=== PATIENT | female | born 1955 | race Caucasian/White ===

== ENCOUNTER 2018-10-14 09:43 | Inpatient (IN) | payer OTHER ==
[2018-10-14 10:26] LABS: HEMATOCRIT 36.2 % (36.0-47.0); MEAN CORPUSCULAR HEMOGLOBIN 32.7 pg (27.0-33.0); MEAN CORPUSCULAR HGB CONC 33.1 g/dl (32.0-36.5); MEAN CORPUSCULAR VOLUME 98.6 fl (80.0-96.0); PLATELET COUNT, AUTOMATED 303 10^3/uL (150-450); RED BLOOD COUNT 3.67 10^6/uL (4.00-5.40); RED CELL DISTRIBUTION WIDTH 13.4 % (11.5-14.5); WHITE BLOOD COUNT 9.3 10^3/uL (4.0-10.0)
[2018-10-14 10:33] LABS: INR 0.96; PROTHROMBIN TIME 12.8 SECONDS (12.1-14.4)
[2018-10-14] MEDS ORDERED: LIDOCAINE 2% INJ 100 MG/5 ML SDV (FOR ANES.) As Ordered (10:39)
[2018-10-14] MEDS ORDERED: PROPOFOL 200 MG/20 ML VIAL As Ordered ×2 (10:39)
[2018-10-14] MEDS: LR 1,000 ML IV ×3 (10:48→20:16)
[2018-10-14 10:59] LABS: ALBUMIN 3.5 GM/DL (3.2-5.2); ALBUMIN/GLOBULIN RATIO 0.95 (1.00-1.93); ALKALINE PHOSPHATASE 99 U/L (45-117); ALT/SGPT 41 U/L (12-78); ANION GAP 8 MEQ/L (8-16); AST/SGOT 34 U/L (7-37); BILIRUBIN,TOTAL 0.5 MG/DL (0.2-1.0); BLOOD UREA NITROGEN 38 MG/DL (7-18); CALCIUM LEVEL 9.2 MG/DL (8.8-10.2); CARBON DIOXIDE LEVEL 26 MEQ/L (21-32); CHLORIDE LEVEL 106 MEQ/L (98-107); CREATININE FOR GFR 1.43 MG/DL (0.55-1.30); GLOMERULAR FILTRATION RATE 39.7 (>45); GLUCOSE, FASTING 105 MG/DL (70-100); POTASSIUM SERUM 3.4 MEQ/L (3.5-5.1); SODIUM LEVEL 140 MEQ/L (136-145); TOTAL PROTEIN 7.2 GM/DL (6.4-8.2)
[2018-10-14] MEDS ORDERED: MIDAZOLAM INJ 2 MG/2 ML VIAL (J2250) As Ordered (11:02)
[2018-10-14] MEDS ORDERED: fentaNYL 100 MCG/2 ML INJECTION (J3010) As Ordered (11:02)
[2018-10-14] MEDS: ceFAZolin 1GM INJ (J0690 PER 500MG) As Ordered (12:26)
[2018-10-14] MEDS: EPINEPHrine INJ 1 MG/ML 1ML AMP As Ordered (12:38)
[2018-10-14] MEDS: TRANEXAMIC ACID 100 MG/ML 10ML VIAL As Ordered (12:38)
[2018-10-14] MEDS ORDERED: ePHEDrine SULFATE 25 MG/5 ML(5MG/ML) SYRINGE As Ordered (12:40)
[2018-10-14] MEDS ORDERED: BUPIVACAINE/DEXTROSE 0.75% 2 ML AMP As Ordered (12:40)
[2018-10-14] MEDS: MORPHINE 1MG/ML IN 0.9% NACL 100ML IV BAG IV (13:45)
[2018-10-14] MEDS ORDERED: MORPHINE 1MG/ML IN 0.9% NACL 100ML IV BAG As Ordered (13:47)
[2018-10-14] MEDS ORDERED: ONDANSETRON 4MG/2ML VIAL (J2405) IV ×3 (14:00→14:15)
[2018-10-14] MEDS ORDERED: MEPERIDINE INJ 25 MG/ML VIAL (J2175) IV (14:00)
[2018-10-14] MEDS ORDERED: FLEET ENEMA PR (14:00)
[2018-10-14] MEDS ORDERED: METOCLOPRAMIDE INJ 10MG/2ML VIAL (J2765) IV (14:00)
[2018-10-14] MEDS ORDERED: fentaNYL 100 MCG/2 ML INJECTION (J3010) IV (14:00)
[2018-10-14] MEDS ORDERED: PERCOCET 5MG/325MG TAB PO (14:00)
[2018-10-14] MEDS ORDERED: NALOXONE INJ 0.4 MG/1 ML VIAL (J2310) IV (14:15)
[2018-10-14] MEDS ORDERED: diphenhydrAMINE INJ 50MG/ML VIAL (J1200) IV (14:15)
[2018-10-14] MEDS ORDERED: EPIDURAL/PCA KEYS XX (14:15)
[2018-10-14] MEDS: NALBUPHINE HCL 10 MG/ML AMP (J2300) IV (14:24)
[2018-10-14] MEDS: NICOTINE 21MG/24HR 1 EA TRANSDERMAL TD (20:16)
[2018-10-15] MEDS: LR 1,000 ML IV (00:49)
[2018-10-15] MEDS: MORPHINE 1MG/ML IN 0.9% NACL 100ML IV BAG IV (02:58)
[2018-10-15] MEDS ORDERED: ONDANSETRON 4 MG TAB (S0181) PO (06:15)
[2018-10-15] MEDS ORDERED: PERCOCET 5MG/325MG TAB PO (06:15)
[2018-10-15 06:18] LABS: HEMATOCRIT 31.2 % (36.0-47.0); MEAN CORPUSCULAR HGB CONC 31.4 g/dl (32.0-36.5); PLATELET COUNT, AUTOMATED 261 10^3/uL (150-450); RED BLOOD COUNT 3.06 10^6/uL (4.00-5.40); RED CELL DISTRIBUTION WIDTH 13.6 % (11.5-14.5); WHITE BLOOD COUNT 11.6 10^3/uL (4.0-10.0)
[2018-10-15 06:28] LABS: HEMOGLOBIN 9.8 g/dl (12.0-15.5)
[2018-10-15 06:38] LABS: INR 0.97
[2018-10-15] MEDS: MIRALAX *UNIT DOSE* 17GM PACKET PO (08:31)
[2018-10-15] MEDS: MOM 30ML SUSPENSION UDC PO (08:31)
[2018-10-15] MEDS: PERCOCET 5MG/325MG TAB PO ×3 (08:32→21:12)
[2018-10-15] MEDS: VENLAFAXINE **XR** 75MG CAPSULE PO (08:33)
[2018-10-15] MEDS: SENOKOT S TAB PO ×2 (08:33→21:11)
[2018-10-15] MEDS: POTASSIUM CHLORIDE 10 MEQ SR TABLET PO (08:33)
[2018-10-15] MEDS: SIMVASTATIN 20 MG TAB PO (08:33)
[2018-10-15] MEDS: ATENOLOL 12.5MG PER 1/2 TABLET PO (08:36)
[2018-10-15] MEDS: RIVAROXABAN 10 MG TAB (XARELTO) PO (17:08)
[2018-10-15] MEDS: diphenhydrAMINE 25 MG CAP PO ×2 (18:37→23:19)
[2018-10-15] MEDS: NICOTINE 21MG/24HR 1 EA TRANSDERMAL TD (21:14)
[2018-10-16] MEDS: ACETAMINOPHEN TAB 650MG DOSE (2X325MG) PO (01:23)
[2018-10-16] MEDS ORDERED: traMADol 50 MG TAB PO (06:00)
[2018-10-16] MEDS: ACETAMINOPHEN 500 MG TAB PO (06:13)
[2018-10-16] MEDS: traMADol 50 MG TAB PO ×2 (06:14→10:30)
[2018-10-16 06:22] LABS: HEMATOCRIT 27.7 % (36.0-47.0); HEMOGLOBIN 8.8 g/dl (12.0-15.5); MEAN CORPUSCULAR HEMOGLOBIN 32.4 pg (27.0-33.0); MEAN CORPUSCULAR HGB CONC 31.8 g/dl (32.0-36.5); MEAN CORPUSCULAR VOLUME 101.8 fl (80.0-96.0); PLATELET COUNT, AUTOMATED 238 10^3/uL (150-450); RED BLOOD COUNT 2.72 10^6/uL (4.00-5.40); RED CELL DISTRIBUTION WIDTH 13.3 % (11.5-14.5); WHITE BLOOD COUNT 11.6 10^3/uL (4.0-10.0)
[2018-10-16 08:12] LABS: ANION GAP 5 MEQ/L (8-16); BLOOD UREA NITROGEN 23 MG/DL (7-18); CALCIUM LEVEL 8.5 MG/DL (8.8-10.2); CARBON DIOXIDE LEVEL 28 MEQ/L (21-32); CHLORIDE LEVEL 105 MEQ/L (98-107); CREATININE FOR GFR 1.18 MG/DL (0.55-1.30); GLOMERULAR FILTRATION RATE 49.6 (>45); GLUCOSE, FASTING 104 MG/DL (70-100); MAGNESIUM LEVEL 1.7 MG/DL (1.8-2.4); POTASSIUM SERUM 4.2 MEQ/L (3.5-5.1); SODIUM LEVEL 138 MEQ/L (136-145)
[2018-10-16] MEDS: SIMVASTATIN 20 MG TAB PO (09:18)
[2018-10-16] MEDS: VENLAFAXINE **XR** 75MG CAPSULE PO (09:18)
[2018-10-16] MEDS: ATENOLOL 12.5MG PER 1/2 TABLET PO ×2 (09:20→09:22)
[2018-10-16] MEDS: SENOKOT S TAB PO (09:22)
[2018-10-16] MEDS: MIRALAX *UNIT DOSE* 17GM PACKET PO (09:22)
[2018-10-16] MEDS: MOM 30ML SUSPENSION UDC PO (09:23)
== END 2018-10-16 10:35 | disposition home or self-care (01) | DRG 301 ==
LOC: M OR 09:43 → M MS5PR 14:50
PROC: 0SR904A Replacement of Right Hip Joint with Ceramic on Polyethylene Synthetic Substitute, Uncemented, Open Approach (ICD-10-PCS; principal; 2018-10-14 11:45)
DX: M16.11 Unilateral primary osteoarthritis, right hip (principal); I10 Essential (primary) hypertension; Z79.899 Other long term (current) drug therapy; E78.5 Hyperlipidemia, unspecified; G47.00 Insomnia, unspecified; F41.9 Anxiety disorder, unspecified; F32.9 Major depressive disorder, single episode, unspecified; F10.10 Alcohol abuse, uncomplicated; F17.200 Nicotine dependence, unspecified, uncomplicated

== ENCOUNTER 2023-02-13 15:38 | Inpatient (IN) | payer OTHER ==
[2023-02-13] VITALS (8 sets, daily range): BP systolic 135–169; BP diastolic 69–93
[~2023-02-13] VITALS: Ht 154.9 cm; Wt 56.1 kg
[~2023-02-13 15:38] MED LIST: ALEV220T26 PO; ATEN25TA PO; IBUPOTC PO; SIMV20TA22 PO; TRAM50TA2 PO; VENL150C43 PO; XARE10TA PO
[2023-02-13] MEDS ORDERED: FOLIC ACID 1 MG in NS 50 ML IV SCH (17:50)
[2023-02-13] MEDS ORDERED: LR 1,000 ML IV SCH (17:50)
[2023-02-13] MEDS ORDERED: THIAMINE 200MG 2ML VIAL IV ONE (18:00)
[2023-02-13] MEDS ORDERED: LORazepam 2 MG TAB PO PRN (18:05)
[2023-02-13] MEDS ORDERED: LORazepam 2 MG/ML 1ML VIAL IV PRN (18:05)
[2023-02-13 18:08] LABS: VENOUS BASE EXCESS -4.7 (-2.0-2.0); VENOUS HCO3 19.2 MEQ/L (23.0-27.0); VENOUS O2 SATURATION 82.7 % (60.0-80.0); VENOUS PARTIAL PRESSURE CO2 31.2 mmHg (38.0-50.0); VENOUS PARTIAL PRESSURE O2 45.9 mmHg (30.0-50.0); VENOUS PH 7.406 UNITS (7.330-7.430); VENOUS STANDARD HCO3 20.3 MEQ/L; VENOUS TOTAL CO2 20.1 MEQ/L (24.0-28.0)
[2023-02-13 18:45] LABS: BILIRUBIN,TOTAL 0.7 MG/DL (0.3-1.2); CALCIUM LEVEL 8.4 MG/DL (8.3-10.6); CREATININE FOR GFR 1.48 MG/DL (0.55-1.30); GLOMERULAR FILTRATION RATE 37.7 (>45); POTASSIUM SERUM 3.6 MMOL/L (3.5-5.1); TOTAL PROTEIN 6.3 G/DL (5.7-8.2)
[2023-02-13] MEDS ORDERED: HOME MED LIST COMPLETE! XX SCH (18:45)
[2023-02-13] MEDS ORDERED: MULTIVITAMIN ADULT IV SCH (19:00)
[2023-02-13] MEDS ORDERED: FOLIC ACID IV SCH (19:00)
[2023-02-13] MEDS ORDERED: THIAMINE IV SCH (19:00)
[2023-02-13] MEDS ORDERED: [UNRECOGNIZED DRUG - OTHER] IV SCH (19:00)
[2023-02-13] MEDS: LORazepam 2 MG/ML 1ML VIAL IV PRN ×2 (20:18→23:38)
[2023-02-13] MEDS: HALOPERIDOL 5MG/ML 1ML VIAL IV PRN (20:18)
[2023-02-13] MEDS ORDERED: LORazepam 2 MG/ML 1ML VIAL IV STA ×2 (20:38→21:46)
[2023-02-13] MEDS ORDERED: OLANZapine INTRAMUSCULAR 10MG VIAL IM ONE (21:50)
[2023-02-13] MEDS: dexmedeTOMidine 200 MCG in IV 1 EA IV SCH (22:32)
[2023-02-14] VITALS (19 sets, daily range): BP systolic 94–159; BP diastolic 53–90
[2023-02-14] MEDS: dexmedeTOMidine 200 MCG in IV 1 EA IV SCH ×2 (00:57→04:47)
[2023-02-14 05:43] LABS: HEMATOCRIT 28.4 % (36.0-47.0); HEMOGLOBIN 8.9 g/dl (12.0-15.5); MEAN CORPUSCULAR HEMOGLOBIN 26.1 pg (27.0-33.0); MEAN CORPUSCULAR HGB CONC 31.3 g/dl (32.0-36.5); MEAN CORPUSCULAR VOLUME 83.3 fl (80.0-96.0); PLATELET COUNT, AUTOMATED 162 10^3/uL (150-450); RED BLOOD COUNT 3.41 10^6/uL (4.00-5.40); WHITE BLOOD COUNT 4.9 10^3/uL (4.0-10.0)
[2023-02-14] MEDS: HEPARIN SOD (PORCINE) 5000UNITS/ML 1ML VIAL/SYRINGE SC SCH ×3 (06:03→21:04)
[2023-02-14 06:25] LABS: ALBUMIN 2.6 G/DL (3.2-5.2); BILIRUBIN,TOTAL 0.7 MG/DL (0.3-1.2); CALCIUM LEVEL 8.3 MG/DL (8.3-10.6); CREATININE FOR GFR 1.33 MG/DL (0.55-1.30); GLOMERULAR FILTRATION RATE 42.6 (>45); POTASSIUM SERUM 3.2 MMOL/L (3.5-5.1); TOTAL PROTEIN 5.7 G/DL (5.7-8.2)
[2023-02-14] MEDS: KCL 10MEQ/100ML SWI (KRUN) 10 MEQ in IV 1 EA IV SCH ×3 (06:41→10:48)
[2023-02-14 06:59] LABS: MAGNESIUM LEVEL 2.3 MG/DL (1.8-2.4)
[2023-02-14] MEDS ORDERED: IPRATROPIUM 0.5MG/ALBUTEROL 2.5MG INH SOL UD 3ML (DUONEB) NEB PRN (08:25)
[2023-02-14] MEDS: MULTIVITAMINS/MINERALS THERAP 1 TAB PO SCH (09:00)
[2023-02-14] MEDS: THIAMINE 100 MG TAB PO SCH ×2 (09:00→20:02)
[2023-02-14] MEDS ORDERED: D5W/0.9% SODIUM CHLORIDE 1,000 ML IV SCH (09:00)
[2023-02-14] MEDS: FOLIC ACID 1MG TAB PO SCH (09:00)
[2023-02-14] MEDS ORDERED: methylPREDNISolone 40MG 1ML VIAL IV ONE (09:00)
[2023-02-14] MEDS: OXAZEPAM 10MG CAP PO SCH ×2 (09:00→19:46)
[2023-02-14] MEDS ORDERED: MULTIVITAMIN -ADULT INJECTION 10 ML in NS 500 ML IV SCH (09:00)
[2023-02-14] MEDS: HALOPERIDOL 5MG/ML 1ML VIAL IV PRN ×2 (11:31→19:46)
[2023-02-15] VITALS (7 sets, daily range): BP systolic 95–150; BP diastolic 54–87
[2023-02-15] MEDS: HEPARIN SOD (PORCINE) 5000UNITS/ML 1ML VIAL/SYRINGE SC SCH ×3 (05:22→21:44)
[2023-02-15 05:41] LABS: HEMOGLOBIN 9.6 g/dl (12.0-15.5); MEAN CORPUSCULAR HEMOGLOBIN 26.1 pg (27.0-33.0); MEAN CORPUSCULAR VOLUME 81.5 fl (80.0-96.0); PLATELET COUNT, AUTOMATED 178 10^3/uL (150-450); RED BLOOD COUNT 3.68 10^6/uL (4.00-5.40)
[2023-02-15 06:19] LABS: BILIRUBIN,TOTAL 0.4 MG/DL (0.3-1.2); CALCIUM LEVEL 9.4 MG/DL (8.3-10.6); CREATININE FOR GFR 1.21 MG/DL (0.55-1.30); GLOMERULAR FILTRATION RATE 47.5 (>45); POTASSIUM SERUM 3.5 MMOL/L (3.5-5.1); TOTAL PROTEIN 6.5 G/DL (5.7-8.2)
[2023-02-15] MEDS: OXAZEPAM 10MG CAP PO SCH ×3 (08:05→21:40)
[2023-02-15] MEDS: FOLIC ACID 1MG TAB PO SCH (08:05)
[2023-02-15] MEDS: THIAMINE 100 MG TAB PO SCH ×2 (08:05→21:41)
[2023-02-15] MEDS: MULTIVITAMINS/MINERALS THERAP 1 TAB PO SCH (08:06)
[2023-02-15] MEDS ORDERED: POTASSIUM CHLORIDE 10MEQ SR TABLET PO ONE (09:15)
[2023-02-15] MEDS ORDERED: NS 1,000 ML IV ONE (09:55)
[2023-02-15] MEDS: NICOTINE 21MG/24HR 1 EA TRANSDERMAL TD PRN (21:40)
[2023-02-16] VITALS: BP 112/72
[2023-02-16 05:17] VITALS: BP 134/91
[2023-02-16] MEDS: HEPARIN SOD (PORCINE) 5000UNITS/ML 1ML VIAL/SYRINGE SC SCH ×3 (05:44→21:03)
[2023-02-16 06:09] LABS: HEMATOCRIT 29.7 % (36.0-47.0); HEMOGLOBIN 9.4 g/dl (12.0-15.5); MEAN CORPUSCULAR HGB CONC 31.6 g/dl (32.0-36.5); MEAN CORPUSCULAR VOLUME 82.3 fl (80.0-96.0); PLATELET COUNT, AUTOMATED 181 10^3/uL (150-450); RED BLOOD COUNT 3.61 10^6/uL (4.00-5.40); WHITE BLOOD COUNT 7.4 10^3/uL (4.0-10.0)
[2023-02-16 06:46] LABS: ALBUMIN 2.8 G/DL (3.2-5.2); BILIRUBIN,TOTAL 0.3 MG/DL (0.3-1.2); CALCIUM LEVEL 8.7 MG/DL (8.3-10.6); CREATININE FOR GFR 1.39 MG/DL (0.55-1.30); GLOMERULAR FILTRATION RATE 40.5 (>45); POTASSIUM SERUM 3.4 MMOL/L (3.5-5.1)
[2023-02-16] MEDS: FOLIC ACID 1MG TAB PO SCH (08:27)
[2023-02-16] MEDS: THIAMINE 100 MG TAB PO SCH ×2 (08:27→21:02)
[2023-02-16] MEDS: OXAZEPAM 10MG CAP PO SCH ×3 (08:27→21:02)
[2023-02-16] MEDS: NICOTINE 21MG/24HR 1 EA TRANSDERMAL TD PRN (08:28)
[2023-02-16] MEDS: MULTIVITAMINS/MINERALS THERAP 1 TAB PO SCH (08:28)
[2023-02-16 14:00] VITALS: BP 136/90
[2023-02-16 18:00] VITALS: BP 136/90
[2023-02-16 20:50] VITALS: BP 134/90
[2023-02-17 05:10] VITALS: BP 132/89
[2023-02-17] MEDS: HEPARIN SOD (PORCINE) 5000UNITS/ML 1ML VIAL/SYRINGE SC SCH (05:18)
[2023-02-17 06:18] LABS: HEMATOCRIT 31.8 % (36.0-47.0); HEMOGLOBIN 9.8 g/dl (12.0-15.5); MEAN CORPUSCULAR HEMOGLOBIN 26.1 pg (27.0-33.0); MEAN CORPUSCULAR HGB CONC 30.8 g/dl (32.0-36.5); MEAN CORPUSCULAR VOLUME 84.8 fl (80.0-96.0); PLATELET COUNT, AUTOMATED 183 10^3/uL (150-450); RED BLOOD COUNT 3.75 10^6/uL (4.00-5.40)
[2023-02-17 06:26] VITALS: BP 132/89
[2023-02-17] MEDS: NICOTINE 21MG/24HR 1 EA TRANSDERMAL TD PRN (06:41)
[2023-02-17 06:46] LABS: ALBUMIN 2.9 G/DL (3.2-5.2); BILIRUBIN,TOTAL 0.4 MG/DL (0.3-1.2); CALCIUM LEVEL 8.6 MG/DL (8.3-10.6); CREATININE FOR GFR 1.33 MG/DL (0.55-1.30); GLOMERULAR FILTRATION RATE 42.6 (>45); POTASSIUM SERUM 3.4 MMOL/L (3.5-5.1); TOTAL PROTEIN 5.9 G/DL (5.7-8.2)
[2023-02-17] MEDS: FOLIC ACID 1MG TAB PO SCH (08:02)
[2023-02-17] MEDS: OXAZEPAM 10MG CAP PO SCH (08:02)
[2023-02-17] MEDS: MULTIVITAMINS/MINERALS THERAP 1 TAB PO SCH (08:02)
[2023-02-17] MEDS ORDERED: FOLI1TAB11 PO ×2 (08:56→09:02)
[2023-02-17] MEDS ORDERED: VITMTA PO ×2 (08:56→09:02)
[2023-02-17] MEDS ORDERED: THIA100T7 PO ×2 (08:56→09:02)
[2023-02-17] MEDS ORDERED: OXAZ10CA3 PO ×2 (08:56→09:00)
[2023-02-17] MEDS ORDERED: POTASSIUM CHLORIDE 10MEQ SR TABLET PO ONE (10:00)
== END 2023-02-17 12:33 | disposition home or self-care (01) | DRG 775 ==
LOC: M ICU 17:18 → M MSPAV 02-15 12:44
PROVIDERS: ADMIT Internal Medicine Pulmonary Disease; ATTEND Internal Medicine Nephrology
DX: F10.239 Alcohol dependence with withdrawal, unspecified (principal); G92.9 Unspecified toxic encephalopathy; N17.9 Acute kidney failure, unspecified; J44.9 Chronic obstructive pulmonary disease, unspecified; E16.2 Hypoglycemia, unspecified; E78.5 Hyperlipidemia, unspecified; E87.6 Hypokalemia; F17.200 Nicotine dependence, unspecified, uncomplicated; F32.A Depression, unspecified; G47.33 Obstructive sleep apnea (adult) (pediatric); I10 Essential (primary) hypertension; R74.01 Elevation of levels of liver transaminase levels; Z96.641 Presence of right artificial hip joint; F41.9 Anxiety disorder, unspecified; Z79.899 Other long term (current) drug therapy

== ENCOUNTER 2024-09-11 20:39 | Emergency (ER) | payer MEDICARE, OTHER ==
[~2024-09-11 20:39] MED LIST changes: +FOLI1TAB11 PO; +OXAZ10CA3 PO; +THIA100T7 PO; +VITMTA PO
[2024-09-11] MEDS: THIAMINE 100 MG TAB PO SCH (21:00)
[2024-09-11 22:04] LABS: CARBOXYHEMOGLOBIN 3.9 % (0.0-1.5); VENOUS HCO3 23.1 MMOL/L (23.0-27.0); VENOUS O2 SATURATION 78.1 % (60.0-80.0); VENOUS PARTIAL PRESSURE CO2 50.5 mmHg (38.0-50.0); VENOUS PH 7.278 UNITS (7.330-7.430); VENOUS STANDARD HCO3 20.8 MMOL/L; VENOUS TOTAL CO2 24.6 MMOL/L (24.0-28.0)
[2024-09-11 22:08] LABS: HEMATOCRIT 32.2 % (36.0-47.0); HEMOGLOBIN 10.5 g/dl (12.0-15.5); MEAN CORPUSCULAR HEMOGLOBIN 28.3 pg (27.0-33.0); MEAN CORPUSCULAR HGB CONC 32.6 g/dl (32.0-36.5); MEAN CORPUSCULAR VOLUME 86.8 fl (80.0-96.0); PLATELET COUNT, AUTOMATED 364 10^3/uL (150-450); RED BLOOD COUNT 3.71 10^6/uL (4.00-5.40)
[2024-09-11 22:36] LABS: ALBUMIN 3.5 G/DL (3.2-5.2); ALKALINE PHOSPHATASE 110 U/L (35-104); ALT/SGPT 25 U/L (7.0-40); AST/SGOT 26 U/L (<34); BILIRUBIN,DIRECT < 0.1 MG/DL (<0.4); BILIRUBIN,TOTAL 0.2 MG/DL (0.3-1.2); BLOOD UREA NITROGEN 22 MG/DL (9-23); CARBON DIOXIDE LEVEL 24 MMOL/L (20-31); CHLORIDE LEVEL 105 MMOL/L (98-107); CREATININE FOR GFR 1.51 MG/DL (0.55-1.30); GLOMERULAR FILTRATION RATE 36.6 (>45); GLUCOSE, FASTING 88 MG/DL (74-106); POTASSIUM SERUM 3.9 MMOL/L (3.5-5.1); SALICYLATE LEVEL < 3.0 MG/DL (<30); SODIUM LEVEL 138 MMOL/L (136-145); TOTAL PROTEIN 7.4 G/DL (5.7-8.2)
[2024-09-11 22:38] LABS: THYROID STIMULATING HORMONE 0.238 uIU/ML (0.55-4.78)
[2024-09-11 22:48] LABS: ABG BASE EXCESS -1.8 (-2.0-2.0); ABG HCO3 22.7 MMOL/L (22.0-26.0); ABG O2 SATURATION 99.2 % (95.0-99.0); ABG PARTIAL PRESSURE CO2 37.7 mmHg (35.0-45.0); ABG PARTIAL PRESSURE O2 177.3 mmHg (75.0-100.0); ABG TOTAL CO2 23.9 MMOL/L (23.0-31.0); ABG pH (ARTERIAL) 7.398 UNITS (7.350-7.450)
[2024-09-11 23:21] LABS: ETHYL ALCOHOL (ETHANOL) 0.418 % (0.000-0.010)
[2024-09-11] MEDS ORDERED: LORazepam 2 MG TAB PO PRN (23:40)
[2024-09-12 01:27] LABS: AMPHETAMINES LEVEL URINE NEGATIVE (NEGATIVE); BARBITURATES URINE NEGATIVE (NEGATIVE); BENZODIAZEPINES URINE NEGATIVE (NEGATIVE); CANNABINOIDS URINE NEGATIVE (NEGATIVE); COCAINE METABOLITE URINE NEGATIVE (NEGATIVE); METHADONE URINE NEGATIVE (NEGATIVE); OPIATES URINE NEGATIVE (NEGATIVE); PHENCYCLIDINE URINE NEGATIVE (NEGATIVE)
[2024-09-12] MEDS: FOLIC ACID 1MG TAB PO SCH (09:18)
[2024-09-12] MEDS: MULTIVITAMINS/MINERALS THERAP 1 TAB PO SCH (09:18)
[2024-09-12] MEDS ORDERED: BACI500O8 TOP (12:04)
[2024-09-12 13:01] VITALS: BP 134/87; TEMP 98.8; O2SAT 96
== END 2024-09-12 13:06 | disposition home or self-care (01) ==
LOC: M ED 20:39 → EDBD 20:39 → M ED 09-12 13:06
DX: F32.A Depression, unspecified (principal); I10 Essential (primary) hypertension; E78.5 Hyperlipidemia, unspecified; J44.9 Chronic obstructive pulmonary disease, unspecified; F17.200 Nicotine dependence, unspecified, uncomplicated; F10.10 Alcohol abuse, uncomplicated; Z79.899 Other long term (current) drug therapy